=== PATIENT | female | born 1995 | race African-American/Black ===

== ENCOUNTER 2018-12-10 10:03 | Day surgery (SDC) | payer MEDICAID ==
[~2018-12-10] VITALS: Ht 165.2 cm; Wt 80.5 kg
[2018-12-10] MEDS ORDERED: LIDOCAINE/PF 2% 5 ML VIAL IM ONE (10:04)
[2018-12-10] MEDS ORDERED: MIDAZOLAM HCL 2 MG/2 ML VIAL IVP ONE (10:04)
[2018-12-10] MEDS ORDERED: PROPOFOL 1% 20 ML VIAL IVP ONE (10:04)
[2018-12-10] MEDS ORDERED: SODIUM CHLORIDE 0.9% 0 ML IV ONE (10:41)
[2018-12-10] MEDS ORDERED: SODIUM CHLORIDE 0.9% 1,000 ML IV ONE ×2 (11:05→11:30)
[2018-12-10] MEDS ORDERED: ETON68IM3 SD (11:31)
== END 2018-12-10 15:05 | disposition home or self-care (01) ==
LOC: SURGERY 10:03
PROVIDERS: ATTEND Student in an Organized Health Care Education/Training Program
DX: K62.1 Rectal polyp (principal); K64.8 Other hemorrhoids; F32.9 Major depressive disorder, single episode, unspecified; E66.09 Other obesity due to excess calories; K75.81 Nonalcoholic steatohepatitis (NASH); J45.909 Unspecified asthma, uncomplicated; F17.200 Nicotine dependence, unspecified, uncomplicated; R10.2 Pelvic and perineal pain; Z88.8 Allergy status to other drugs, medicaments and biological substances; Z72.89 Other problems related to lifestyle; Z87.01 Personal history of pneumonia (recurrent); Z79.899 Other long term (current) drug therapy
CPT/HCPCS: 36415; 45380; 84702; 88305; C1769; J2250; J2704; J3490; J7030